=== PATIENT | male | born 1965 | race Caucasian/White ===

== ENCOUNTER → 2016-09-22 | Outpatient (CLI) | payer BC ==
--- NOTE | 2016-09-22 16:57 | RADRPT ---
PROCEDURE: XR left knee. CLINICAL INDICATION: Knee pain TECHNIQUE: AP weightbearing, PA weightbearing, lateral weightbearing and sunrise views are availa ble for review. COMPARISON: None available FINDINGS: There is mild osteoarthrosis involving the patellofemoral compartment. This is associated with osteo phytosis. The osseous structures are otherwise normal in mineralization, architecture and alignment. No fract ures are identified. No osseous lesions are identified. The soft tissues are unremarkable. IMPRESSION: Mild osteoarthrosis involving the patellofemoral compartment. RPTAT: HGDB .Taras Aguayo MD, Date Time Electronically viewed and signed by .Taras Aguayo MD, on 09/22/2016 16:56 .B/
--- NOTE | 2016-09-22 16:58 | RADRPT ---
PROCEDURE: XR bilateral hips. CLINICAL INDICATION: Hip pain TECHNIQUE: AP pelvis/AP and lateral views of the right and left hips available for review. COMPARISON: No prior studies are available for comparison. FINDINGS: There are bilateral total hip replacements. There is normal mineralization, architecture and alignment. There is no evidence of loosening of th e prosthesis. There is no evidence of hardware failure. No fractures, dislocation or osseous lesions are identified. The joints are unremarkable. There are normal soft tissues. IMPRESSION: Bilateral total hip replacements. Otherwise unremarkable examination. RPTAT: HGDB .Taras Aguayo MD, Date Time Electronically viewed and signed by .Taras Aguayo MD, on 09/22/2016 16:57 .B/
== END | disposition home or self-care (01) ==
LOC: HKI 15:12
PROVIDERS: ATTEND Orthopaedic Surgery
DX: T84.84XA Pain due to internal orthopedic prosthetic devices, implants and grafts, initial encounter (principal); M25.552 Pain in left hip; M25.551 Pain in right hip; Z96.643 Presence of artificial hip joint, bilateral; M17.12 Unilateral primary osteoarthritis, left knee
CPT/HCPCS: 73523; 73564; G0463

== ENCOUNTER → 2016-09-29 | Outpatient (CLI) | payer BC ==
--- NOTE | 2016-09-29 12:58 | RADRPT ---
PROCEDURE: Three-phase bone scan study CLINICAL INDICATION: 51 -year-old patient with bilateral hip replacement, complaining of hip pain. TECHNIQUE: Following the intravenous injection of 23.9 mCi of Tc-99m MDP, a three-phase bone scan study of the hips bilaterally was obtained. COMPARISON: No prior bone scan studies. FINDINGS: Blood flow phase of the study demonstrates symmetrical distribution of activity in the hips bilatera lly. Blood pooling images reveal symmetrical distribution of uptake in both hips. Delayed images of both hips demonstrate evidence of a bilateral hip replacement with a focus of inte nse uptake located along the greater trochanter of the left hip. Otherwise, there is mildly increas ed activity surrounding both hip prosthesis is including the location of the tip prosthesis is in th e proximal femur bilaterally. IMPRESSION: 1. Evidence of the left hip replacement with a focus of intense uptake located along the greater tr ochanter of the left hip and mildly increased activity surrounding the hip prosthesis as well as at the tip of the prosthesis in the left proximal femur. The findings may be seen in association with prosthesis loosening. 2. Evidence of the right hip replacement with mildly increased activity noted surrounding the prost hesis as well as at the tip of the prosthesis in the right proximal femur; prosthesis loosening eda ot be ruled out. 3. No other abnormal areas of increased uptake in the obtained limited views of both hips. RPTAT: HH .Payal Ferrer MD, Date Time Electronically viewed and signed by .Payal Ferrer MD, on 09/29/2016 12:57 .L/
== END | disposition home or self-care (01) ==
LOC: NUC 09:13
PROVIDERS: ATTEND Orthopaedic Surgery
DX: T84.84XA Pain due to internal orthopedic prosthetic devices, implants and grafts, initial encounter (principal); M25.552 Pain in left hip; M25.551 Pain in right hip; Y83.8 Other surgical procedures as the cause of abnormal reaction of the patient, or of later complication, without mention of misadventure at the time of the procedure; Z96.643 Presence of artificial hip joint, bilateral
CPT/HCPCS: 78315; A9503

== ENCOUNTER → 2016-10-06 | Outpatient (CLI) | payer BC | END | disposition home or self-care (01) | LOC: HKI 17:00 | PROVIDERS: ATTEND Orthopaedic Surgery | DX: T84.84XA Pain due to internal orthopedic prosthetic devices, implants and grafts, initial encounter (principal); T84.031A Mechanical loosening of internal left hip prosthetic joint, initial encounter; T84.030A Mechanical loosening of internal right hip prosthetic joint, initial encounter; T84.061A Wear of articular bearing surface of internal prosthetic left hip joint, initial encounter; T84.060A Wear of articular bearing surface of internal prosthetic right hip joint, initial encounter; Y83.8 Other surgical procedures as the cause of abnormal reaction of the patient, or of later complication, without mention of misadventure at the time of the procedure; Z96.643 Presence of artificial hip joint, bilateral; M25.551 Pain in right hip; M25.552 Pain in left hip ==

== ENCOUNTER → 2016-11-06 | Outpatient (CLI) | payer BC | END | disposition home or self-care (01) | LOC: HKI 10:25 | PROVIDERS: ATTEND Orthopaedic Surgery | DX: T84.84XA Pain due to internal orthopedic prosthetic devices, implants and grafts, initial encounter (principal); T84.031A Mechanical loosening of internal left hip prosthetic joint, initial encounter; T84.030A Mechanical loosening of internal right hip prosthetic joint, initial encounter; M25.551 Pain in right hip; M25.552 Pain in left hip; T84.061A Wear of articular bearing surface of internal prosthetic left hip joint, initial encounter; T84.060A Wear of articular bearing surface of internal prosthetic right hip joint, initial encounter | CPT/HCPCS: 87081; G0463 ==

== ENCOUNTER 2016-11-14 08:11 | Inpatient (IN) | payer BC ==
[~2016-11-14] VITALS: Ht 188 cm; Wt 98.3 kg
[2016-11-14] VITALS (22 sets, daily range): BP systolic 102–162; BP diastolic 62–98; PULSE 70–100; RESP 10–35; Ht 188 cm; Wt 98.3 kg
[~2016-11-14 08:11] MED LIST: BUPIVACAINE LIPOSOME/PF 266 MG/20 ML VIAL INFIL ONE; CELECOXIB 400 MG PO X1 DOSE PO ONE; LACTATED RINGER'S 1,000 ML IV SCH; PAIN COCKTAIL - VANCOMYCIN IRR ONE; PREGABALIN 300 MG PO X1 PO ONE; TRANEXAMIC ACID 980 MG in SOD CHLORIDE 0.9% 100 ML IVPB ONE; TRANEXAMIC ACID 980 MG in SOD CHLORIDE 0.9% 90.2 ML IV ONE; VANCOMYCIN 1 GM/NS 250 ML X1 BEFORE INCISION IVPB ONE; oxyCODONE (CR) 10 MG TAB [oxyCONTIN] X1 DOSE PO ONE; traMADOL 50 MG TAB X 1 DOSE PO ONE
[2016-11-14] MEDS ORDERED: EXPAREL NOTE (BUPIVICAINE LIPOSOMAL) XX SCH (09:30)
[2016-11-14] MEDS ORDERED: SIMV20TA PO (10:50)
[2016-11-14] MEDS ORDERED: PARO20TA58 PO (10:51)
[2016-11-14] MEDS ORDERED: TRAM-40 PO (10:51)
[2016-11-14] MEDS ORDERED: VANCOMYCIN 1 GM INJ ONE ×2 (12:27→13:02)
[2016-11-14] MEDS ORDERED: POLYMYXIN B 500000 UNIT INJ ONE (12:27)
--- NOTE | 2016-11-14 12:58 | HPN ---
Date/Time of Note Date/Time of Note DATE: 11/14/16 TIME: 12:58 Interval H&P Admission Note Pt. seen H&P reviewed: No system changes No changes from H&P on 11/07/16 by WILMER Costa MD November 14, 2016 12:58
[2016-11-14] MEDS ORDERED: HEPARIN 1000 UNITS/ML 10 ML INJ ONE (13:01)
[2016-11-14] MEDS ORDERED: TOBRAMYCIN 1.2 GM POWDER ONE (13:02)
[2016-11-14] MEDS ORDERED: ROCURONIUM 50 MG INJ ONE (13:20)
[2016-11-14] MEDS ORDERED: CEFAZOLIN 1 GM INJ ONE (13:20)
[2016-11-14] MEDS ORDERED: MIDAZOLAM 1 MG/ML 2 ML INJ ONE (13:20)
[2016-11-14] MEDS ORDERED: ONDANSETRON 4 MG INJ ONE (13:20)
[2016-11-14] MEDS ORDERED: GLYCOPYRROLATE 0.4 MG INJ ONE (13:20)
[2016-11-14] MEDS ORDERED: PROPOFOL 20 ML ONE (13:20)
[2016-11-14] MEDS ORDERED: NEOSTIGMINE 3 MG/3 ML SYRINGE ONE (13:20)
[2016-11-14] MEDS ORDERED: DEXAMETHASONE 4 MG/ML 1 ML INJ ONE (13:20)
[2016-11-14] MEDS ORDERED: FENTAnyl 50 MCG/ML VIAL ONE ×2 (13:20→16:31)
[2016-11-14] MEDS ORDERED: BACITRACIN 50000 UNITS INJ IRR ONE (14:14)
[2016-11-14] MEDS ORDERED: BACITRACIN 50000 UNITS INJ ONE (14:27)
[2016-11-14] MEDS ORDERED: ALBUMIN HUMAN 5% 250 ML ONE (14:46)
[2016-11-14] MEDS ORDERED: TRIMETHOBENZAMIDE 100 MG/ML VIAL IM PRN (15:00)
[2016-11-14] MEDS ORDERED: ONDANSETRON 4 MG INJ IV PRN ×2 (15:00→17:30)
[2016-11-14] MEDS ORDERED: hydrALAzine 20 MG INJ IV PRN (15:00)
[2016-11-14] MEDS ORDERED: MEPERIDINE 25 MG INJ IV PRN (15:00)
[2016-11-14] MEDS ORDERED: LABETALOL HCL 20MG INJ IV PRN (15:00)
[2016-11-14] MEDS ORDERED: MIDAZOLAM 1 MG/ML 2 ML INJ IV PRN (15:00)
[2016-11-14] MEDS ORDERED: HYDROmorphONE (0.2 MG/ML) 10ML SYG IV PRN ×2 (15:00)
[2016-11-14] MEDS ORDERED: DIPHENHYDRAMINE 50 MG INJ IV PRN (15:00)
[2016-11-14] MEDS ORDERED: FENTAnyl 50 MCG/ML VIAL IV PRN ×3 (15:00)
[2016-11-14] MEDS ORDERED: EPHEDrine SULFATE 50 MG/5 ML SYG IV PRN (15:00)
[2016-11-14] MEDS ORDERED: THROMBIN 5000 UNIT VIAL ONE (16:06)
[2016-11-14] MEDS ORDERED: HEMOSTATIC MATRIX SYG ZFS ONE (16:20)
--- NOTE | 2016-11-14 17:23 | PN ---
Date/Time of Note Date/Time of Note DATE: 11/14/16 TIME: 17:21 Assessment/Plan Lines/Catheters IV Catheter Type (from Nrsg): Saline Lock Assessment/Plan Assessment/Plan Stable in PACU, s/p revision left PHI -continue Ancef until final culture results -pain meds as needed -ASA/SCDs for DVT prophylaxis -OOB with PT -posterior hip precautions -check AM labs -monitor drain -d/c eid in AM XR of the left hip is pending at this time Subjective 24 Hr Interval Summary Stable in PACU. Complaining of mild pain. Moving all extremities. Exam/Review of Systems Vital Signs Vitals Vital Signs Date Time Temp Pulse Resp B/P Pulse Ox O2 Delivery O2 Flow Rate FiO2 11/14/16 17:12 97.3 11/14/16 11:23 75 19 114/77 99 Room Air Exam Free Text/Dictation Hemovac: minimal Dressing dry Incision clean, dry, and intact without redness or drainage 5/5 Quadriceps, Tibialis Anterior, EHL, Gastroc, Soleus, Peroneals Normal sensation Palpable DT/PT, CR <2 sec No distal edema LATA SALAS PA-C November 14, 2016 17:23
[2016-11-14] MEDS ORDERED: BISACODYL 10 MG SUPP PR PRN (17:30)
[2016-11-14] MEDS ORDERED: HYDROCODONE/APAP (5/325) TAB PO PRN (17:30)
[2016-11-14] MEDS ORDERED: DIPHENHYDRAMINE 25 MG CAP PO PRN (17:30)
[2016-11-14] MEDS ORDERED: ASPIRIN (EC) 325 MG TAB PO ONE (17:30)
[2016-11-14] MEDS ORDERED: NACL 0.9% 3 ML SYG IV SCH (17:30)
[2016-11-14] MEDS ORDERED: MAGNESIUM HYDROXIDE 30ML CUP PO PRN (17:30)
[2016-11-14] MEDS ORDERED: NA PHOSPHATE/BIPHOS 133 ML ENEMA PR PRN (17:30)
[2016-11-14 17:31] LABS: HEMATOCRIT 32.6 % (42.0-52.0); HEMOGLOBIN 10.6 g/dl (14.0-18.0)
[2016-11-14] MEDS: CEFAZOLIN 2 GM/50 ML (PMX) 50 ML IVPB SCH (17:33)
--- NOTE | 2016-11-14 17:34 | OPR ---
Date/Time of Note Date/Time of Note DATE: 11/14/16 TIME: 17:33 Operative Report Free Text/Dictation Dictation # [id number] Procedure Date: November 14, 2016 Preoperative Diagnosis Mechanical Loosening Left PHI Postoperative Diagnosis Same Operation Performed Revision Left PHI Surgeon: WILMER KRAUSE MD driller's assistant: LATA SALAS PA-C Anesthesia: general, spinal Anesthesiologist: Dada Hamilton M.D. Estimated Blood Loss: other Specimens Aerobic and anaerobic culture x 2 Tubes/Drains Hemovac x 1 Complications: None Pt Condition Post Procedure: stable Disposition: PACU WILMER KRAUSE MD November 14, 2016 17:34
[2016-11-14] MEDS: HYDROmorphONE (0.2 MG/ML) 10ML SYG IV PRN ×2 (17:55→18:49)
[2016-11-14 18:07] LABS: CREATININE 0.79 mg/dl (0.61-1.24); POTASSIUM 4.4 mmol/L (3.5-5.1)
[2016-11-14 18:09] LABS: CALCIUM 8.2 mg/dl (8.4-10.2)
--- NOTE | 2016-11-14 18:12 | RADRPT ---
PROCEDURE: Pelvis x-ray CLINICAL INDICATION: Postoperative evaluation TECHNIQUE: AP pelvis COMPARISON: 11/13/2016 bilateral hip series FINDINGS: The patient is status post operative replacement of previously noted left hip prosthesis. Interval placement of a new left femoral prosthesis is noted with multiple radiodense beats present in the granados rgical bed of the left hip joint. Surgical skin wei and surgical drain are present. Intact spencer dware and gross anatomic alignment is present. The patient is status post remote right total hip replacement with intact hardware. A catheter is s uperimposed over the pelvis. IMPRESSION: 1. Status post interval removal of prior left femoral prosthesis and replacement with new left femo ral prosthesis with postsurgical changes and intact hardware and alignment. 2. Status post remote right total hip replacement with intact hardware and alignment. 3. Catheter superimposed over pelvis. 4. Please refer to operative report for greater detail. RPTAT: HDC .Gosia Mathew MD, MD Date Time Electronically viewed and signed by .Gosia Mathew MD, on 11/14/2016 18:11 .C/
--- NOTE | 2016-11-14 18:15 | RADRPT ---
PROCEDURE: Left hip AP film CLINICAL INDICATION: Status post left hip replacement. TECHNIQUE: AP left hip COMPARISON: 09/22/2016 bilateral hip series and bone scan dated 09/29/2016 FINDINGS: The patient is status post replacement old left femoral prosthesis with interval new prosthesis note d. Postsurgical radiodense beats and drainage catheter are noted with in the surgical bed. Intact hardware and gross anatomic alignment is present. Surgical skin wei are noted. IMPRESSION: 1. Status post replacement of prior and now noted new left femoral prosthesis with intact hardware and gross anatomic alignment. 2. Postsurgical changes as noted above and please refer to operative report for greater detail. RPTAT: HDC .Gosia Mathew MD, MD Date Time Electronically viewed and signed by .Gosia Mathew MD, on 11/14/2016 18:14 .C/
--- NOTE | 2016-11-14 18:26 | RADRPT ---
PROCEDURE: Intraoperative fluoroscopy for left hip surgery CLINICAL INDICATION: Left hip pain and loosening of prior prosthesis TECHNIQUE: 13 intraoperative images obtained of the left hip. Total fluoroscopy time is 0.6 minut es and total cumulative radiation dose is 0.312 mGym2 COMPARISON: Three-phase bone scan dated 09/29/2016 and bilateral hip series dated 09/22/2016 FINDINGS: Multiple images are obtained of the left femur during the course of placement of a new left femoral prosthesis. Intact hardware and gross anatomic alignment is present. IMPRESSION: 1. Status post replacement of the left femoral prosthesis with intact hardware and gross anatomic a lignment. 2. Please refer to operative report for greater detail. RPTAT: HDC .Gosia Mathew MD, MD Date Time Electronically viewed and signed by .Gosia Mathew MD, on 11/14/2016 18:26 .C/
[2016-11-14] MEDS: HYDROCODONE/APAP (5/325) TAB PO PRN (19:26)
[2016-11-14] MEDS: PANTOPRAZOLE (EC) 40 MG TAB PO SCH (19:58)
[2016-11-14] MEDS: LACTATED RINGER'S 1,000 ML IV SCH (20:29)
[2016-11-14] MEDS ORDERED: TRANEXAMIC ACID 980 MG in SOD CHLORIDE 0.9% 100 ML IVPB ONE ×2 (20:30→23:30)
[2016-11-14] MEDS: traMADol 50 MG TAB PO SCH (20:32)
[2016-11-14] MEDS: ATORVASTATIN 10 MG TAB PO SCH (20:32)
[2016-11-14] MEDS: PREGABALIN 50 MG CAP PO SCH (20:32)
[2016-11-14] MEDS: DOCUSATE SODIUM 100 MG CAP PO SCH (20:32)
--- NOTE | 2016-11-14 20:43 | OPR ---
DATE OF OPERATION: 11/14/2016 PREOPERATIVE DIAGNOSIS: Mechanical loosening left total hip arthroplasty. POSTOPERATIVE DIAGNOSIS: Mechanical loosening left total hip arthroplasty. PROCEDURE: Revision left total hip arthroplasty. SURGEON: Wilmer Krause MD CHEMISTRY LECTURER: LEX Hernandez COMPONENTS USED: Biomet Jeevan 21 mm x 150 mm STS stem, 50 size A standard cone proximal body, 36 + 0 ceramic head, DePuy Duraloc 60 mm x 36 mm +4 neutral polyethylene liner. ANESTHESIA: Spinal plus periarticular injection plus general anesthesia. ANESTHESIOLOGIST: Dr. Hamilton. ESTIMATED BLOOD LOSS: 500 mL. INTRAVENOUS FLUIDS: 4 liters of crystalloid, 125 mL of autologous Cell Saver blood, and 250 mL of albumin. SPECIMENS: Aerobic and anaerobic culture of joint fluid x2. DRAINS: Hemovac x1. COMPLICATIONS: None. DISPOSITION: The patient tolerated the procedure well and was taken to the recovery room in stable condition. INDICATIONS: The patient is a 51-year-old gentleman who has had both hips replaced in the past by another surgeon. He has had persistent pain in both hips particularly in the thighs with start-up walking consistent with loosening. Imaging studies including plain radiographs and a bone scan were consistent with loosening. I felt he would benefit from staged bilateral revision surgery. The risks, benefits, and alternatives of the procedure were explained in detail to the patient. I explained the risks of the surgery to include but not be limited to bleeding and possible need for blood transfusion, infection, pain, stiffness, neurovascular injury, possible numbness, weakness, and/or paralysis anywhere from the hip down to the toes, fracture, instability, dislocation, leg length inequality, wear and/or loosening of the prosthesis, need for revision at a later date, wound healing problems, blood clots, pulmonary embolism, and anesthetic complications such as heart attack, stroke, GI bleed, pneumonia and/or . Ample time was allowed for the patient to ask questions, all of which were addressed and answered. He understood the risks involved and wished to proceed. Informed consent was signed prior to the procedure. PROCEDURE: The left hip was initialed with a marking pen in the preoperative holding area to identify the correct operative site. The patient was then brought to the operating room and transferred from the [facility] to the operating table where he was administered a spinal anesthetic and then anesthetized and intubated. A Roa catheter was placed. A timeout was performed to confirm the left side was the correct operative site. He was then turned to the lateral decubitus position from the left side up. An axillary roll was placed under the right chest wall and he was secured into the pegboard and all bony prominences were well padded. The patient was given 1 gram of vancomycin and 2 grams of intravenous Ancef 1 hour prior to the incision. The left hip and lower extremity were prepped and draped in usual sterile fashion. The previous posterolateral scar was excised. This was carried down to subcutaneous tissue and fat with sharp dissection. The iliotibial band and gluteus yahaira muscle fascia were incised along the length of the wound. The gluteus yahaira muscle fibers were bluntly split. The trochanteric bursa was incised. The piriformis and short external rotators and posterior capsule were taken down off the posterior aspect of the greater trochanter in 1 soft tissue sleeve and tagged with #2 FiberWire. Synovial fluid was normal in color and consistency and was swabbed for aerobic and anaerobic cultures x2. The gluteus yahaira insertion was released for optimal mobilization of the femur. The femoral head was dislocated from the acetabulum. The head was disimpacted from the trunnion. The stem was markedly subsided relative to the previous osteotomy. Fibrous tissue was removed from around the proximal aspect of the stem. The stem had motion consistent with loosening. I used a bur to remove some of the overhanging greater trochanter and then flexible osteotomes were used to free up any remaining bone that may be impinging on the stem. At this point, the [place] revision hook with a backslap was placed through the opening on the top of the prosthesis and backslapped out of the femur fairly easily. At this point, retractors were placed around the acetabulum. The acetabulum was inspected and noted to be well fixed and had about 40 to 45 degrees of abduction and 20 to 25 degrees of anteversion. A screw was drilled into the polyethylene and it was removed along with the Duraloc locking ring. A new locking ring was placed into the cup and a 60 x 36 + 4 neutral polyethylene liner was opened and impacted into the acetabulum and sat flush circumferentially. Attention was turned back towards the femur. I then used a thin long tipped drill under AP and lateral C-arm imaging to drill past the pedestal into the femur. I then placed a beaded guidewire through this down to the knee and reamed over the flexible guidewire up to the 15 mm using the flexible reamers. I then used the Biomet Jeevan tapered reamers to ream up to a 21 such that the 60 mm marking was at the tip of the greater trochanter. This had an excellent bite. The real 21 x 150 tapered STS stem was impacted into the femur. I trialed with various bodies and found that the 50A body gave the best length with a 36 neutral head. This was reduced in the acetabulum and had excellent range of motion. The hip came to 110 degrees of flexion at 90 degrees of flexion and neutral abduction, the hip was stable posteriorly to 80 degrees of internal rotation. In the position of sleep it was stable posteriorly to 85 degrees of internal rotation. The hip came to full extension. No posterior impingement or anterior instability. The [place] sign showed a combined forward flexion of 45 degrees. At this point, the trial head was dislocated. The trial body removed. The proximal femur was irrigated and then dried and the real 50A proximal cone body was opened and impacted onto the distal stem, keeping the neck anteverted 20 to 25 degrees relative to the tibia pointing towards the ceiling. The proximal bolt was tightened and torqued off. The trunnion was irrigated and dried. The Biomet InterGro demineralized bone matrix was then opened and placed in the proximal femur around the proximal cone body and then the ceramic head was impacted on the trunnion and reduced in the acetabulum. The hip had the same range of motion and stability with the trials. The hip was irrigated with antibiotic saline pulsatile lavage and then Betadine, saline and then antibiotic saline and pulsatile lavage again. Stimulan beads were mixed with vancomycin and tobramycin, placed in the wound. FloSeal was injected as well for optimal hemostasis. A Hemovac drain was placed in the deep portion of the wound and brought out the anterolateral thigh. The posterior capsule and short external rotator sleeve was repaired back to the greater trochanter through drill holes with #2 FiberWire. The quadratus femoris was repaired back to the vastus lateralis with interrupted #1 Vicryls in a [id number] fashion. The iliotibial band was repaired with interrupted #1 Vicryl and then the gluteus yahaira fascia was repaired with a running #1 Vicryl. The deep fat layer was irrigated and closed with 2-0 Stratafix and then 3-0 Vicryl, and wei on the skin. The skin edges were sealed with Dermabond. The drain was secured with 3-0 nylon. Sponge and needle counts were correct at the end of the case. The wound was covered with silver Mepilex dressing and then the drain secured with a 4 x 4 and Tegaderm. The patient was taken out of the pegboard and transferred to the [facility] and taken to the recovery room in stable condition. Dictated By: WILMER KRAUSE MD EZ/NTS Conf#: [id number] DID#: [id number] CC: WILMER KRAUSE MD;*EndCC* MTDD
[2016-11-14] MEDS: HYDROmorphONE 1 MG/ML SYG IV PRN (22:11)
[2016-11-15 00:30] VITALS: BP 112/63; RESP 20
[2016-11-15] MEDS: CEFAZOLIN 2 GM/50 ML (PMX) 50 ML IVPB SCH ×3 (01:14→18:27)
[2016-11-15] MEDS: LACTATED RINGER'S 1,000 ML IV SCH ×4 (03:26→21:20)
[2016-11-15 04:12] VITALS: BP 106/59; PULSE 64; RESP 18
[2016-11-15] MEDS: HYDROCODONE/APAP (5/325) TAB PO PRN ×4 (04:39→20:05)
[2016-11-15 05:08] LABS: HEMATOCRIT 29.3 % (42.0-52.0); HEMOGLOBIN 9.7 g/dl (14.0-18.0)
[2016-11-15 05:45] LABS: CALCIUM 8.6 mg/dl (8.4-10.2); CREATININE 0.79 mg/dl (0.61-1.24); POTASSIUM 4.3 mmol/L (3.5-5.1)
[2016-11-15] MEDS: PANTOPRAZOLE (EC) 40 MG TAB PO SCH ×2 (06:21→18:27)
[2016-11-15] MEDS: traMADol 50 MG TAB PO SCH ×4 (06:21→18:27)
[2016-11-15 06:38] LABS: ADD UMIC YES; URINE BILIRUBIN (Dip) NEGATIVE (NEGATIVE); URINE BLOOD (Dip) TRACE (NEGATIVE); URINE COLOR LT. YELLOW (YELLOW); URINE GLUCOSE (Dip) NEGATIVE (NEGATIVE); URINE KETONES (Dip) NEGATIVE (NEGATIVE); URINE LEUKOCYTE ESTERASE (Dip) NEGATIVE (NEGATIVE); URINE NITRITE (Dip) NEGATIVE (NEGATIVE); URINE TOTAL PROTEIN (Dip) NEGATIVE (NEGATIVE); URINE UROBILINOGEN (Dip) 0.2 E.U./dL (0.1-1.0)
[2016-11-15 07:08] LABS: URINE RBCS 0-2 /HPF (0)
[2016-11-15 07:40] VITALS: BP 117/59; RESP 19
--- NOTE | 2016-11-15 08:48 | PN ---
Date/Time of Note Date/Time of Note DATE: 11/15/16 TIME: 08:46 Assessment/Plan Lines/Catheters IV Catheter Type (from Nrsg): Peripheral IV Roa in Place (from Nrsg): No Assessment/Plan Assessment/Plan Stable POD #1, s/p revision left PHI -continue Ancef until final culture results -pain meds as needed -ASA/SCDs for DVT prophylaxis -monitor drain -OOB with PT -continue posterior hip precautions -check AM labs -d/c planning. Will plan to go home upon discharge Subjective 24 Hr Interval Summary No acute overnight events. Did not start PT yesterday. Having minimal pain. H&H low but will monitor for now. VSS, afebrile. Will plan to go home upon discharge. Exam/Review of Systems Vital Signs Vitals Vital Signs Date Time Temp Pulse Resp B/P Pulse Ox O2 Delivery O2 Flow Rate FiO2 11/15/16 07:40 98.0 69 19 117/59 98 11/15/16 04:54 3.0 11/15/16 04:12 Mask Intake and Output 11/14/16 11/14/16 11/15/16 15:00 23:00 07:00 Intake Total 4500 ml 834.8 ml 5009.8 ml Output Total 1005 ml 5120 ml Balance 4500 ml -170.2 ml -110.2 ml Exam Free Text/Dictation Hemovac: 125cc Dressing dry Incision clean, dry, and intact without redness or drainage 10/27 Quadriceps, Tibialis Anterior, EHL, Gastroc, Soleus, Peroneals Normal sensation Palpable DT/PT, CR <2 sec No distal edema Results Result Diagram: 11/15/16 0415 11/15/16 0415 LATA SALAS PA-C November 15, 2016 08:48
[2016-11-15] MEDS: CELECOXIB 200 MG CAP PO SCH (09:49)
[2016-11-15] MEDS: PAROXETINE 20 MG TAB PO SCH (09:49)
[2016-11-15] MEDS: ASPIRIN (EC) 325 MG TAB PO SCH ×2 (09:49→20:04)
[2016-11-15] MEDS: DOCUSATE SODIUM 100 MG CAP PO SCH ×2 (09:49→20:04)
[2016-11-15] MEDS: PREGABALIN 50 MG CAP PO SCH ×2 (09:53→20:04)
--- NOTE | 2016-11-15 10:08 | CONS ---
DATE OF ADMISSION: 11/14/2016 DATE OF CONSULTATION: 11/15/2016 TYPE OF CONSULTATION: Postoperative Medical Thank you very much for allowing me to evaluate this 51-year-old male who just underwent left hip re vision. HISTORICAL EVENTS: As you well know, this patient did undergo a prior left hip replacement. Becaus e of increasing pain, he elected to proceed with revision that was done yesterday. Postoperatively, on the orthopedic floor, he is comfortable without cough, wheezing, shortness of breath, nausea, vo miting, abdominal pain, chest pain, radiating neck, arm or jaw discomfort. PAST MEDICAL HISTORY: Includes: 1. Avascular necrosis of the left hip, having had bilateral hip replacements. 2. Depression. 3. Hyperlipidemia. 4. No history of diabetes or coronary artery disease. 5. Obstructive sleep apnea. 6. Seasonal allergies. 7. Having had a kyphoplasty in 2014, left elbow surgery 2014, arthroscopic left shoulder surgery , laminectomy 2013. MEDICATIONS: Prior to admission: 1. Prozac 10 mg per day. 2. Simvastatin 5 mg per day. 3. Centrum. FAMILY HISTORY: Unrevealing. SOCIAL HISTORY: He is a nonsmoker. He does use marijuana. ALLERGIES: RASH. PHYSICAL EXAMINATION: VITAL SIGNS: Blood pressure 120/80, pulse 70, respirations 20, he was afebrile. EYES: Extraocular muscles were full. NOSE, MOUTH, AND THROAT: Normal. NECK: Supple. There was no jugular venous distention, thyroid enlargement or adenopathy. Carotids 2+. LUNGS: Clear. HEART: Rhythm regular, no murmur. No third or fourth sound. ABDOMEN: Nontender. Liver and spleen were not palpable. No masses or tenderness were noted. EXTREMITIES: No edema. Calves nontender. NEUROLOGIC: No lateralizing motor weakness. IMPRESSION: 1. Stable postop left total hip arthroplasty. 2. History of hyperlipidemia. We will continue with statin. 3. We will evaluate daily for signs and symptoms of thromboembolic disease despite appropriate deep venous thrombosis prophylaxis. Dictated By: TRE PELAYO/NTS Conf#: [id number] DID#: [id number] CC: WILMER KRAUSE MD;*EndCC*
[2016-11-15] MEDS: HYDROmorphONE 1 MG/ML SYG IV PRN ×2 (13:04→23:11)
[2016-11-15] MEDS: ATORVASTATIN 10 MG TAB PO SCH (20:04)
[2016-11-15 20:45] VITALS: BP 128/77; RESP 18
[2016-11-16] MEDS: CEFAZOLIN 2 GM/50 ML (PMX) 50 ML IVPB SCH ×3 (01:03→18:07)
[2016-11-16 05:27] LABS: HEMATOCRIT 30.2 % (42.0-52.0)
[2016-11-16] MEDS: traMADol 50 MG TAB PO SCH ×4 (05:33→18:07)
[2016-11-16] MEDS: PANTOPRAZOLE (EC) 40 MG TAB PO SCH ×2 (05:33→18:06)
[2016-11-16 06:05] LABS: POTASSIUM 4.2 mmol/L (3.5-5.1)
[2016-11-16 06:08] LABS: CALCIUM 8.5 mg/dl (8.4-10.2); CREATININE 0.86 mg/dl (0.61-1.24)
[2016-11-16] MEDS: HYDROCODONE/APAP (5/325) TAB PO PRN ×4 (06:20→20:10)
[2016-11-16 08:05] VITALS: BP 134/96; RESP 18
[2016-11-16] MEDS: CELECOXIB 200 MG CAP PO SCH (09:09)
[2016-11-16] MEDS: ASPIRIN (EC) 325 MG TAB PO SCH ×2 (09:09→20:10)
[2016-11-16] MEDS: DOCUSATE SODIUM 100 MG CAP PO SCH ×2 (09:09→20:10)
[2016-11-16] MEDS: PAROXETINE 20 MG TAB PO SCH (09:09)
[2016-11-16] MEDS: PREGABALIN 50 MG CAP PO SCH ×2 (09:09→20:10)
[2016-11-16] MEDS: LACTATED RINGER'S 1,000 ML IV SCH ×2 (09:10→17:12)
--- NOTE | 2016-11-16 11:09 | CONS ---
Date/Time of Note Date/Time of Note DATE: 11/16/16 TIME: 11:08 Assessment/Plan Assessment/Plan Additional Assessment/Plan 1. Stable postop left total hip arthroplasty, doing well 2. History of hyperlipidemia, on statin Consultation Date/Type/Reason Admit Date/Time November 14, 2016 at 10:03 Initial Consult Date Detailed Summary Respiratory: No cough, No shortness of breath Cardiovascular: No chest pain Gastrointestinal: no complaints Genitourinary: no complaints Musculoskeletal: bone/joint pain (mild left hip pain) Exam/Review of Systems Vital Signs Vitals Vital Signs Date Time Temp Pulse Resp B/P Pulse Ox O2 Delivery O2 Flow Rate FiO2 11/16/16 08:05 98.2 86 18 134/96 98 11/15/16 07:45 Nasal Cannula 2.0 Intake and Output 11/15/16 11/15/16 11/16/16 15:00 23:00 07:00 Intake Total 2850 ml 1530 ml Output Total 1840 ml 2010 ml Balance 1010 ml -480 ml Exam Neck: No jvd Respiratory: clear to auscultation Cardiovascular: regular rate and rhythm Gastrointestinal: soft Extremities: No edema, No tenderness Results Result Diagram: 11/16/16 0423 11/16/16 0423 Results 24 hrs Laboratory Tests Test 11/16/16 04:23 Hemoglobin 10.0 L Hematocrit 30.2 L Sodium Level 142 Potassium Level 4.2 Chloride Level 103 Carbon Dioxide Level 29 Anion Gap 14 # Blood Urea Nitrogen 15 Creatinine 0.86 Glucose Level 86 Calcium Level 8.5 Medications Medications Current Medications Paroxetine HCl (Paxil) 20 mg DAILY PO Last administered on 11/16/16 09:09; Admin Dose 20 MG; Start 11/15/16 at 09:00 Atorvastatin Calcium 10 mg 10 mg DAILY@21 PO Last administered on 11/15/16 20: 04; Admin Dose 10 MG; Start 11/14/16 at 21:00 Lactated Ringer's (Lr) 1,000 ml @ 125 mls/hr Q8H IV Last administered on 21:20; Admin Dose 125 MLS/HR; Start 11/14/16 at 17:12 Celecoxib (Celebrex) 200 mg DAILY PO Last administered on 11/16/16 09:09; Admin Dose 200 MG; Start 11/15/16 at 09:00 Tramadol HCl (Ultram) 50 mg Q6 PO Last administered on 11/16/16 05:33; Admin Dose 50 MG; Start 11/14/16 at 12:00; Stop 11/17/16 at 11:59 Acetaminophen/ Hydrocodone Bitart ([place] (5/325)) 1 tab Q4H PRN PO PAIN LEVEL 1 -3; Start 11/14/16 at 17:30 Acetaminophen/ Hydrocodone Bitart ([place] (5/325)) 2 tab Q4H PRN PO PAIN LEVEL 4 -7 Last administered on 11/16/16 10:22; Admin Dose 2 TAB; Start 11/14/16 at 17: 30 Hydromorphone HCl 1 mg 1 mg Q3H PRN IV PAIN LEVEL 8-10 Last administered on 23:11; Admin Dose 1 MG; Start 11/14/16 at 17:30 Cefazolin Sodium/ Dextrose (Ancef 2 Gm/50 ml (Pmx)) 50 ml @ 100 mls/hr Q8H IVPB Last administered on 11/16/16 09:09; Admin Dose 100 MLS/HR; Start at 17:30; Stop 11/17/16 at 09:59 Ondansetron HCl (Zofran Inj) 4 mg Q6H PRN IV NAUSEA AND/OR VOMITING Last administered on 11/15/16 23:10; Admin Dose 4 MG; Start 11/14/16 at 17:30 Bisacodyl (Dulcolax Supp) 10 mg Q12H PRN HI CONSTIPATION; Start 11/14/16 at 17: 30 Magnesium Hydroxide (Milk Of Mag) 30 ml BID PRN PO CONSTIPATION; Start at 17:30 Sodium Biphosphate/ Sodium Phosphate (Fleet Enema) 133 ml DAILY PRN HI CONSTIPATION; Start 11/14/16 at 17:30 Docusate Sodium (Colace) 100 mg BID PO Last administered on 11/16/16 09:09; Admin Dose 100 MG; Start 11/14/16 at 21:00 Diphenhydramine HCl (Benadryl) 25 mg Q6H PRN PO PRURITUS; Start 11/14/16 at 17: 30 Aspirin (Ecotrin) 325 mg BID PO Last administered on 11/16/16 09:09; Admin Dose 325 MG; Start 11/15/16 at 09:00 Pantoprazole (Protonix Tab) 40 mg BID@,18 PO Last administered on 11/16/16 05:33; Admin Dose 40 MG; Start 11/14/16 at 18:00 Pregabalin (Lyrica) 50 mg BID PO Last administered on 11/16/16 09:09; Admin Dose 50 MG; Start 11/14/16 at 21:00 TRE COVARRUBIAS MD November 16, 2016 11:09
[2016-11-16] MEDS: HYDROmorphONE 1 MG/ML SYG IV PRN (12:55)
--- NOTE | 2016-11-16 18:00 | PN ---
Date/Time of Note Date/Time of Note DATE: 11/16/16 TIME: 17:58 Assessment/Plan Lines/Catheters IV Catheter Type (from Nrsg): Peripheral IV Roa in Place (from Nrsg): No Assessment/Plan Assessment/Plan Stable POD #2, s/p revision left PHI -continue Ancef until final culture results -pain meds as needed -ASA/SCDs for DVT prophylaxis -OOB with PT -drain removed -dressing changed -check AM labs -likely will go home tomorrow Subjective 24 Hr Interval Summary No acute overnight events. Denies significant pain. Progressing well with PT. VSS, afebrile. Culture results are negative thus far. Will plan to go home tomorrow Exam/Review of Systems Vital Signs Vitals Vital Signs Date Time Temp Pulse Resp B/P Pulse Ox O2 Delivery O2 Flow Rate FiO2 11/16/16 08:05 98.2 86 18 134/96 98 11/15/16 07:45 Nasal Cannula 2.0 Intake and Output 11/15/16 11/15/16 11/16/16 15:00 23:00 07:00 Intake Total 2850 ml 1530 ml Output Total 1840 ml 2010 ml Balance 1010 ml -480 ml Exam Free Text/Dictation Hemovac: 100cc Dressing dry Incision clean, dry, and intact without redness or drainage 10/27 Quadriceps, Tibialis Anterior, EHL, Gastroc, Soleus, Peroneals Normal sensation Palpable DT/PT, CR <2 sec No distal edema Results Result Diagram: 11/16/16 0423 11/16/16 0423 LATA SALAS PA-C November 16, 2016 18:00
[2016-11-16 20:00] VITALS: BP 117/70; RESP 19
[2016-11-16] MEDS: ATORVASTATIN 10 MG TAB PO SCH (20:10)
--- NOTE | 2016-11-16 20:32 | PDOCDIS ---
Discharge Instructions DIAGNOSIS Discharge Diagnosis: s/p revision left PHI CONDITION Patient Condition: Good HOME CARE INSTRUCTIONS: Diet Instructions: Regular ACTIVITY: Activity Restrictions: No Restrictions Rest between Activity Avoid heavy lifting Do not operate Machinery Do not operate Power Tool Avoid Heavy Housework Keep Limb Elevated FOLLOW UP/APPOINTMENTS Appointments follow up in the office on 11/24/16 OTHER ORDERS: Other Orders: S/P Posterior PHI Physical Therapy: Three times per week at home x 2 weeks Daily in Rehab/SNF WB STATUS: WBAT Strengthening exercises for both upper and un-operated lower extremities. 1. Gait training with front wheeled walker 2. Wide base gait, no pivot turns. 3. Abductor strengthening. 4. Quadriceps and hamstring strengthening. 5. May switch to cane in contra lateral hand 6 weeks after surgery. 6. Physical Therapy can open case if nursing is not available. 7. Ice Packs while at rest to surgical wound for 20 minutes, 3 times/day. 8. Patient requires mobile SCDs to reduce risk of developing DVT following PHI. Patient will use the mobile SCDs for 30 days postoperatively. Hip Precautions: no flexion beyond 90 degrees, no adduction, no internal rotation. Bathing assistance by home health aide twice weekly if Medicare patient. Occupational Therapy: Evaluation for assistive devices and ADL training. Wound Care: Keep incision dry & covered with Tegaderm until first visit with Dr. Metzger Anticoagulation Orders: Enteric Coated Aspirin 325 mg po bid x 6 weeks from date of surgery Follow-up:Call for an appointment with Dr. Metzger in 1 week after discharged from hospital at DME Orders: CHRISTA, 3-in-1 Commode, Mobile SCDs LATA SALAS PA-C November 16, 2016 20:32
[2016-11-16] MEDS ORDERED: PANT40TA4 PO (20:34)
[2016-11-16] MEDS ORDERED: HYDR-3498 PO (20:34)
[2016-11-16] MEDS ORDERED: ASPI325T32 PO (20:34)
[2016-11-16] MEDS ORDERED: TRAM50TA2 PO (20:34)
[2016-11-17] MEDS: traMADol 50 MG TAB PO SCH ×2 (00:04→06:09)
[2016-11-17] MEDS: LACTATED RINGER'S 1,000 ML IV SCH ×2 (01:12→09:12)
[2016-11-17] MEDS: CEFAZOLIN 2 GM/50 ML (PMX) 50 ML IVPB SCH ×2 (02:10→11:00)
[2016-11-17 04:56] LABS: HEMATOCRIT 31.7 % (42.0-52.0); HEMOGLOBIN 10.8 g/dl (14.0-18.0)
[2016-11-17 05:15] LABS: CALCIUM 9.1 mg/dl (8.4-10.2); CREATININE 0.84 mg/dl (0.61-1.24)
[2016-11-17] MEDS: PANTOPRAZOLE (EC) 40 MG TAB PO SCH (06:08)
[2016-11-17 08:05] VITALS: BP 123/88; RESP 18
[2016-11-17] MEDS: HYDROCODONE/APAP (5/325) TAB PO PRN ×2 (08:30→12:13)
[2016-11-17] MEDS: CELECOXIB 200 MG CAP PO SCH (08:34)
[2016-11-17] MEDS: ASPIRIN (EC) 325 MG TAB PO SCH (08:34)
[2016-11-17] MEDS: PAROXETINE 20 MG TAB PO SCH (08:34)
[2016-11-17] MEDS: DOCUSATE SODIUM 100 MG CAP PO SCH (08:34)
[2016-11-17] MEDS: PREGABALIN 50 MG CAP PO SCH (08:35)
--- NOTE | 2016-11-17 08:48 | CONS ---
Date/Time of Note Date/Time of Note DATE: 11/17/16 TIME: 08:47 Assessment/Plan Assessment/Plan Additional Assessment/Plan 1. Stable postop left total hip arthroplasty, doing well 2. History of hyperlipidemia, on statin 3. Can dc if ok with ortho, labs rev Consultation Date/Type/Reason Admit Date/Time November 14, 2016 at 10:03 Detailed Summary Respiratory: cough (mild not productive), No shortness of breath Cardiovascular: No chest pain Gastrointestinal: no complaints Genitourinary: no complaints Exam/Review of Systems Vital Signs Vitals Vital Signs Date Time Temp Pulse Resp B/P Pulse Ox O2 Delivery O2 Flow Rate FiO2 11/17/16 08:05 97.8 100 18 123/88 93 11/15/16 07:45 Nasal Cannula 2.0 Intake and Output 11/16/16 11/16/16 11/17/16 15:00 23:00 07:00 Intake Total 50 ml 2410 ml 850 ml Output Total 1400 ml 1900 ml Balance 50 ml 1010 ml -1050 ml Exam Neck: No jvd Respiratory: clear to auscultation Cardiovascular: regular rate and rhythm Gastrointestinal: soft Extremities: No edema (and no calf tend) Results Result Diagram: 11/17/16 0415 11/17/16 0415 Results 24 hrs Laboratory Tests Test 11/17/16 04:15 Hemoglobin 10.8 L Hematocrit 31.7 L Sodium Level 141 Potassium Level 4.0 Chloride Level 98 Carbon Dioxide Level 32 H Anion Gap 15 Blood Urea Nitrogen 10 Creatinine 0.84 Glucose Level 101 Calcium Level 9.1 Medications Medications Current Medications Paroxetine HCl (Paxil) 20 mg DAILY PO Last administered on 11/17/16 08:34; Admin Dose 20 MG; Start 11/15/16 at 09:00 Atorvastatin Calcium 10 mg 10 mg DAILY@21 PO Last administered on 11/16/16 20: 10; Admin Dose 10 MG; Start 11/14/16 at 21:00 Lactated Ringer's (Lr) 1,000 ml @ 125 mls/hr Q8H IV Last administered on 21:20; Admin Dose 125 MLS/HR; Start 11/14/16 at 17:12 Celecoxib (Celebrex) 200 mg DAILY PO Last administered on 11/17/16 08:34; Admin Dose 200 MG; Start 11/15/16 at 09:00 Tramadol HCl (Ultram) 50 mg Q6 PO Last administered on 11/17/16 06:09; Admin Dose 50 MG; Start 11/14/16 at 12:00; Stop 11/17/16 at 11:59 Acetaminophen/ Hydrocodone Bitart (Vance (5/325)) 1 tab Q4H PRN PO PAIN LEVEL 1 -3; Start 11/14/16 at 17:30 Acetaminophen/ Hydrocodone Bitart (Vance (5/325)) 2 tab Q4H PRN PO PAIN LEVEL 4 -7 Last administered on 11/17/16 08:30; Admin Dose 2 TAB; Start 11/14/16 at 17: 30 Hydromorphone HCl 1 mg 1 mg Q3H PRN IV PAIN LEVEL 8-10 Last administered on 12:55; Admin Dose 1 MG; Start 11/14/16 at 17:30 Cefazolin Sodium/ Dextrose (Ancef 2 Gm/50 ml (Pmx)) 50 ml @ 100 mls/hr Q8H IVPB Last administered on 11/17/16 02:10; Admin Dose 100 MLS/HR; Start at 17:30; Stop 11/17/16 at 09:59 Ondansetron HCl (Zofran Inj) 4 mg Q6H PRN IV NAUSEA AND/OR VOMITING Last administered on 11/15/16 23:10; Admin Dose 4 MG; Start 11/14/16 at 17:30 Bisacodyl (Dulcolax Supp) 10 mg Q12H PRN NE CONSTIPATION; Start 11/14/16 at 17: 30 Magnesium Hydroxide (Milk Of Mag) 30 ml BID PRN PO CONSTIPATION; Start at 17:30 Sodium Biphosphate/ Sodium Phosphate (Fleet Enema) 133 ml DAILY PRN NE CONSTIPATION; Start 11/14/16 at 17:30 Docusate Sodium (Colace) 100 mg BID PO Last administered on 11/17/16 08:34; Admin Dose 100 MG; Start 11/14/16 at 21:00 Diphenhydramine HCl (Benadryl) 25 mg Q6H PRN PO PRURITUS; Start 11/14/16 at 17: 30 Aspirin (Ecotrin) 325 mg BID PO Last administered on 11/17/16 08:34; Admin Dose 325 MG; Start 11/15/16 at 09:00 Pantoprazole (Protonix Tab) 40 mg BID@,18 PO Last administered on 11/17/16 06:08; Admin Dose 40 MG; Start 11/14/16 at 18:00 Pregabalin (Lyrica) 50 mg BID PO Last administered on 11/17/16 08:35; Admin Dose 50 MG; Start 11/14/16 at 21:00 TRE COVARRUBIAS MD November 17, 2016 08:48
[2016-11-17] MEDS ORDERED: CEPH-443 PO (09:10)
--- NOTE | 2016-11-17 09:57 | PN ---
Date/Time of Note Date/Time of Note DATE: 11/17/16 TIME: 09:56 Assessment/Plan Lines/Catheters IV Catheter Type (from Nrsg): Peripheral IV Roa in Place (from Nrsg): No Assessment/Plan Assessment/Plan Stable POD #3, s/p revision left PHI -pain meds as needed -ASA/SCDs for DVT prophylaxis -OOB with PT -dressing changed -continue posterior hip precautions -discharge home today -follow up in the office in 1 week Subjective 24 Hr Interval Summary No acute overnight events. Having slightly increased pain but controlled with pain medicine. Progressing well with PT. Stable for discharge home today. Exam/Review of Systems Vital Signs Vitals Vital Signs Date Time Temp Pulse Resp B/P Pulse Ox O2 Delivery O2 Flow Rate FiO2 11/17/16 08:05 97.8 100 18 123/88 93 11/15/16 07:45 Nasal Cannula 2.0 Intake and Output 11/16/16 11/16/16 11/17/16 15:00 23:00 07:00 Intake Total 50 ml 2410 ml 850 ml Output Total 1400 ml 1900 ml Balance 50 ml 1010 ml -1050 ml Exam Free Text/Dictation Dressing dry Incision clean, dry, and intact without redness or drainage 10/27 Quadriceps, Tibialis Anterior, EHL, Gastroc, Soleus, Peroneals Normal sensation Palpable DT/PT, CR <2 sec No distal edema Results Result Diagram: 11/17/16 0415 11/17/16 0415 LATA SALAS PA-C November 17, 2016 09:57
--- NOTE | 2016-11-17 12:53 | DS ---
DATE OF ADMISSION: 11/14/2016 DATE OF DISCHARGE: 11/17/2016 ADMITTING DIAGNOSIS: Mechanical complication, left total hip arthroplasty. DISCHARGE DIAGNOSIS: Status post revision, left total hip arthroplasty. PROCEDURE PERFORMED: Revision, left total hip arthroplasty. HOSPITAL COURSE: This is a 51-year-old male who was seen in the clinic complaining of left hip pain . He had previously undergone a left total hip arthroplasty approximately 20 years ago and had star tup pain that was insidious in nature. X-rays demonstrated mechanical complications and loosening o f the left total hip arthroplasty and it was thought he would benefit revision of his left total hip . On 11/14/2016, the patient was admitted and taken to the operating room where he underwent a revi philly left total hip arthroplasty. There were no intraoperative complications. The patient tolerate d the procedure well. He was taken to the recovery room in stable condition. Pain was well control led with oral pain medication. He was started on aspirin and SCDs for DVT prophylaxis. He remained hemodynamically stable and neurovascularly intact throughout his hospital stay. He began physical therapy while in the hospital and continued to make good progress. Ultimately he was deemed stable for discharge on postoperative day 3. Wound cultures were done at the time of surgery and were nega tive for any acute findings. Prior to discharge, the incision was inspected and noted to be clean, dry, and intact. Dressing changes were done prior to the patient going home. LABORATORY ANALYSIS: Hemoglobin 10.8, hematocrit 31.7. Chemistry panel was within normal limits. DISCHARGE MEDICATIONS: 1. Richton 5/325 mg. 2. Tramadol 50 mg. 3. Aspirin 325 mg. 4. Protonix 40 mg. 5. Keflex 500 mg. In addition, the patient is to resume all his normal home medications. DISCHARGE INSTRUCTIONS: The patient will be discharged home in stable condition. He is to continue with posterior hip precautions. He is to resume normal diet. He is weightbearing as tolerated on the left lower extremity. He will be discharged home with the medications noted above is to resume all his normal home medications. The patient is to call the office or to the emergency room for any concerns including increased redness, swelling, drainage, fever, or any concern regarding the opera tion or site of incision. FOLLOWUP: The patient is to follow up in the office 11/24/2016. Dictated By: ASHKHAN Ngozi PAZ/GINA Conf#: [id number] DID#: [id number]
== END 2016-11-17 13:05 | disposition home health service (06) | DRG 468 ==
LOC: REC 10:03 → MS1 20:10
PROVIDERS: ADMIT Orthopaedic Surgery; ATTEND Orthopaedic Surgery
PROC: 0SRB04A Replacement of Left Hip Joint with Ceramic on Polyethylene Synthetic Substitute, Uncemented, Open Approach (ICD-10-PCS; 2016-11-14)
PROC: 0SWB0JZ Revision of Synthetic Substitute in Left Hip Joint, Open Approach (ICD-10-PCS; principal; 2016-11-14 13:00)
DX: T84.031A Mechanical loosening of internal left hip prosthetic joint, initial encounter (principal); Z96.643 Presence of artificial hip joint, bilateral; F32.9 Major depressive disorder, single episode, unspecified; Y84.8 Other medical procedures as the cause of abnormal reaction of the patient, or of later complication, without mention of misadventure at the time of the procedure; Y92.019 Unspecified place in single-family (private) house as the place of occurrence of the external cause; E78.5 Hyperlipidemia, unspecified; G47.33 Obstructive sleep apnea (adult) (pediatric); J30.2 Other seasonal allergic rhinitis; Z87.891 Personal history of nicotine dependence
CPT/HCPCS: 72170; 73500; 73530; 80048; 81001; 85014; 85018; 86850; 86900; 86901; 86920; 87070; 87081; 87086; 97110; 97116; 97162; 97166; 97530; C1713; C1762; C9290; J0171; J0690; J0735; J1100; J1170; J1644; J1885; J2250; J2274; J2405; J2710; J3010; J3370; J7120; P9045

== ENCOUNTER → 2016-11-24 | Outpatient (CLI) | payer BC ==
[~2016-11-24] MED LIST changes: +ASPI325T32 PO; -BUPIVACAINE LIPOSOME/PF 266 MG/20 ML VIAL INFIL ONE; -CELECOXIB 400 MG PO X1 DOSE PO ONE; +CEPH-443 PO; +HYDR-3498 PO; -LACTATED RINGER'S 1,000 ML IV SCH; -PAIN COCKTAIL - VANCOMYCIN IRR ONE; +PANT40TA4 PO; +PARO20TA58 PO; -PREGABALIN 300 MG PO X1 PO ONE; +SIMV20TA PO; +TRAM50TA2 PO; -TRANEXAMIC ACID 980 MG in SOD CHLORIDE 0.9% 100 ML IVPB ONE; -TRANEXAMIC ACID 980 MG in SOD CHLORIDE 0.9% 90.2 ML IV ONE; -VANCOMYCIN 1 GM/NS 250 ML X1 BEFORE INCISION IVPB ONE; -oxyCODONE (CR) 10 MG TAB [oxyCONTIN] X1 DOSE PO ONE; -traMADOL 50 MG TAB X 1 DOSE PO ONE
--- NOTE | 2016-11-24 11:55 | RADRPT ---
PROCEDURE: XR pelvis/left hip. CLINICAL INDICATION: Hip pain TECHNIQUE: AP pelvis/lateral left hip view available for review. COMPARISON: 11/14/2016 FINDINGS: There is a remote unremarkable right total hip replacement Recent left total hip revision with antibiotic beads still visualized in the proximal femoral shaft and surrounding the prosthesis. There is otherwise normal mineralization, architecture and alignment. There is no evidence of loose court of the prosthesis. There is no evidence of hardware failure. No fractures, dislocation or osseo us lesions are identified. The joints are unremarkable. There are normal soft tissues. IMPRESSION: Remote unremarkable right total hip replacement. Recent left total hip revision with antibiotic beads still visualized. RPTAT: HGDB .Taras Aguayo MD, MD Date Time Electronically viewed and signed by .Taras Aguayo MD, on 11/24/2016 11:54 .B/
== END | disposition home or self-care (01) ==
LOC: HKI 10:34
PROVIDERS: ATTEND Orthopaedic Surgery
DX: Z47.1 Aftercare following joint replacement surgery (principal); T84.031A Mechanical loosening of internal left hip prosthetic joint, initial encounter; T84.84XA Pain due to internal orthopedic prosthetic devices, implants and grafts, initial encounter; Z96.642 Presence of left artificial hip joint
CPT/HCPCS: 73502

== ENCOUNTER → 2016-12-22 | Outpatient (CLI) | payer BC ==
--- NOTE | 2016-12-23 12:00 | RADRPT ---
PROCEDURE: XR Hip and pelvis. CLINICAL INDICATION: Pain TECHNIQUE: AP pelvis and frog lateral views of the left hip, were performed. COMPARISON: November 24, 2016 FINDINGS: No acute fracture or dislocation. Bilateral total hip arthroplasties are present. Alignment is anatomic. Overall, there is no significant interval change. IMPRESSION: Bilateral total hip arthroplasties; the left arthroplasty is more recent. Anatomic alignment. Over all, no significant interval change. RPTAT: EE .Mabel Wilson MD, MD Date Time Electronically viewed and signed by .Mabel Wilson MD, MD on 12/23/2016 12:00 .F/
== END | disposition home or self-care (01) ==
LOC: HKI 14:00
PROVIDERS: ATTEND Orthopaedic Surgery
DX: Z47.1 Aftercare following joint replacement surgery (principal); Z96.643 Presence of artificial hip joint, bilateral; M25.552 Pain in left hip
CPT/HCPCS: 73502

== ENCOUNTER → 2017-02-02 | Outpatient (CLI) | payer BC ==
--- NOTE | 2017-02-02 16:36 | RADRPT ---
PROCEDURE: XR Left hip and pelvis. CLINICAL INDICATION: Left hip pain and pelvic pain. TECHNIQUE: 3 views. Frontal pelvis. Frontal and lateral left hip. COMPARISON: 12/22/2016. FINDINGS: There are bilateral total hip arthroplasties which appears satisfactory. There is no fracture, disl ocation, or loosening. The soft tissues are normal. The upper pelvis is not completely included on the images. IMPRESSION: 1. Satisfactory postoperative appearance of both hips. 2. Unremarkable frontal view of the pelvis. RPTAT: QQ .Vu Hubbard MD, MD Date Time Electronically viewed and signed by .Vu Hubbard MD, on 02/02/2017 16:36 .R/
== END | disposition home or self-care (01) ==
LOC: HKI 14:22
PROVIDERS: ATTEND Orthopaedic Surgery
DX: Z47.1 Aftercare following joint replacement surgery (principal); T84.031A Mechanical loosening of internal left hip prosthetic joint, initial encounter; T84.84XA Pain due to internal orthopedic prosthetic devices, implants and grafts, initial encounter; T84.030A Mechanical loosening of internal right hip prosthetic joint, initial encounter; M25.551 Pain in right hip; Z96.643 Presence of artificial hip joint, bilateral
CPT/HCPCS: 73502